=== PATIENT | male | born 1980 | race African-American/Black ===

== ENCOUNTER 2023-12-15 00:48 | Day surgery (SDC) | payer OTHER, SELFPAY ==
[2023-12-01 14:34] VITALS: BMI 31.4
[2023-12-15 12:19] VITALS: BP 122/77; PULSE 87; RESP 18; TEMP 36.1; O2SAT 100
[2023-12-15] MEDS: LACTATED RINGERS 1,000 ML 150 ML IV CONT (12:31)
[2023-12-15 12:33] LABS: Glucose Point of Care 213 mg/dl (65-105)
--- NOTE | 2023-12-15 12:47 | PM.HPGS ---
History of Present Illness History of Present Illness Consent: Risks, benefits, and alternatives have been discussed and questions answered. Patient agrees to proceed with procedure. Chief complaint: other specified diseases of anus and rectum Narrative: Frederick Gibson is a 43 year old male with intermittent rectal pain, never had colonoscopy Review of Systems Review of Systems: All systems reviewed & are unremarkable except as noted in HPI and below PMFSH Past Medical History Medical History (Updated 11/04/23 @ 15:47 by STAN Denis) Rectal pain Social History Social History (Updated 11/04/23 @ 15:48 by Maria Fernanda Hernandez MA) Smoking packs per day: 0.5 Smoking cigarettes per day: 10.0 Years smoked: 25 Smoking pack-years: 12.50 Smoking status: Current every day smoker Tobacco type: cigarettes Alcohol intake: current Drinks per week: 20 Alcohol use details: VODKA Substance use: current Substance use type: marijuana Other substance usage details: SMOKES DAILY Living arrangements: with family Occupation/Education: occupation Gender identity (if verbalized by the patient): Male Spiritual care concerns: No Meds Home Medications and Allergies Home Medications Medication Instructions Recorded Confirmed Type amlodipine 10 mg tablet 10 mg PO DAILY 11/04/23 12/01/23 History dapagliflozin propanediol 10 mg 10 mg PO DAILY 11/04/23 12/01/23 History tablet (Farxiga) fenofibrate nanocrystallized 160 160 mg PO DAILY 11/04/23 12/01/23 History mg tablet hydralazine 25 mg tablet 25 mg PO TID 11/04/23 12/01/23 History hydrocortisone 2.5 % topical cream 1 applic RECTAL BID PRN pain #30 11/04/23 12/01/23 Rx with perineal applicator grams lisinopril 40 mg tablet 40 mg PO DAILY 11/04/23 12/01/23 History meclizine 12.5 mg tablet 12.5 mg PO TID PRN Stomach Upset 11/04/23 12/01/23 History metformin 750 mg tablet,extended 750 mg PO DAILY 11/04/23 12/01/23 History release 24 hr ondansetron HCl 4 mg tablet 4 mg PO Q8H PRN Nausea And Vomiting 11/04/23 12/01/23 History Allergies Allergy/AdvReac Type Severity Reaction Status Date / Time No Known Allergies Allergy Verified 12/15/23 12:17 Vital Signs Vital Signs - 24 hr 12/15/23 12:19 Temperature 97 F L Pulse Rate 87 Respiratory Rate 18 Blood Pressure 122/77 Pulse Oximetry 100 Oxygen Delivery Room Air Exam Const: General: comfortable and no acute distress HENMT: Face/Nose/Sinus: Normal nares present Eyes: General: appearance normal, both eyes and all related structures Neck: Neck: no JVD Resp: Auscultation: clear to auscultation bilaterally Cardio: Rate: regular rate Rhythm: regular rhythm GI: Inspection: non-distended GI Palp: Yes Soft to palpation Skin: General skin exam: normal color Neuro: General: gait normal Speech: normal speech Extrem: General: normal to inspection Psych: Mental Status: mental status grossly normal Assessment and Plan Assessment and plan (1) Rectal pain: Code(s): K62.89 - Other specified diseases of anus and rectum Status: Acute Assessment and Plan: colonoscopy
[2023-12-15 13:17] VITALS: BP 96/69; PULSE 79; RESP 18; O2SAT 93
[2023-12-15 13:27] VITALS: BP 115/96; PULSE 78; RESP 18; O2SAT 100
[2023-12-15 13:37] VITALS: BP 108/67; PULSE 80; RESP 18; O2SAT 100
--- NOTE | 2023-12-18 08:05 | P.PNAN_ITS ---
Anes - Initial Pre Proc Eval Procedure: Operation Date: 12/15/23 13:30 Proposed Procedures p Colonoscopy - Lino Barnhart MD Date/Time: 12/18/23 08:05 Surgeon: Lino Barnhart MD Pre Op Diagnosis: other specified diseases of anus and rectum Patient Data Age: 43 Gender: M Height: 1.8 m Weight: 100.7 kg Last Vital Signs Temp 97 F L 12/15/23 12:19 Pulse 80 12/15/23 13:37 Resp 18 12/15/23 13:37 BP 108/67 12/15/23 13:37 Pulse Ox 100 12/15/23 13:37 O2 Del Method Room Air 12/15/23 13:37 Allergies Allergy/AdvReac Type Severity Reaction Status Date / Time No Known Allergies Allergy Verified 12/15/23 12:17 Home Medications Medication Instructions Recorded Confirmed Type amlodipine 10 mg tablet 10 mg PO DAILY 11/04/23 12/01/23 History dapagliflozin propanediol 10 mg 10 mg PO DAILY 11/04/23 12/01/23 History tablet (Farxiga) fenofibrate nanocrystallized 160 160 mg PO DAILY 11/04/23 12/01/23 History mg tablet hydralazine 25 mg tablet 25 mg PO TID 11/04/23 12/01/23 History hydrocortisone 2.5 % topical cream 1 applic RECTAL BID PRN pain #30 11/04/23 12/01/23 Rx with perineal applicator grams lisinopril 40 mg tablet 40 mg PO DAILY 11/04/23 12/01/23 History meclizine 12.5 mg tablet 12.5 mg PO TID PRN Stomach Upset 11/04/23 12/01/23 History metformin 750 mg tablet,extended 750 mg PO DAILY 11/04/23 12/01/23 History release 24 hr ondansetron HCl 4 mg tablet 4 mg PO Q8H PRN Nausea And Vomiting 11/04/23 12/01/23 History Patient hx anesthesia problems: none Family hx anesthesia problems: none Results Review: All pre-operative results and documents have been reviewed as part of the pre- operative evaluation. [facility] Past Medical History Medical History (Updated 11/04/23 @ 15:47 by STAN Denis) Rectal pain Social History Social History (Updated 11/04/23 @ 15:48 by Maria Fernanda Hernandez MA) Smoking packs per day: 0.5 Smoking cigarettes per day: 10.0 Years smoked: 25 Smoking pack-years: 12.50 Smoking status: Current every day smoker Tobacco type: cigarettes Alcohol intake: current Drinks per week: 20 Alcohol use details: VODKA Substance use: current Substance use type: marijuana Other substance usage details: SMOKES DAILY Living arrangements: with family Occupation/Education: occupation Gender identity (if verbalized by the patient): Male Spiritual care concerns: No Anes - Eval Final PreProcedure Day of Procedure 12/18/23 08:05 Patient weight: obese Heart: regular rate and rhythm Lungs: clear to auscultation Airway: Mallampati scale class II Neurological: alert and oriented Last oral intake: >/= 8 hours ASA classification: III Emergent: no Anesthetic plan: proceed Anesthesia type and monitoring: general GIVS and standard monitoring Results Review: All pre-operative results and documents have been reviewed as part of the pre- operative evaluation. Informed Consent: The patient's anesthetic plan and its attendant risks and benefits were discussed with the patient/family/POA. Questions were solicited and answers provided to the satisfaction of the patient/family/POA.
== END 2023-12-15 13:44 | disposition home or self-care (01) ==
PROVIDERS: PCP Nurse Practitioner Family; Visit Provider Internal Medicine Gastroenterology
PROC: 0DJD8ZZ Inspection of Lower Intestinal Tract, Via Natural or Artificial Opening Endoscopic (ICD-10-PCS; CPT 45378; principal; 2023-12-15 13:30)
DX: D12.3 Benign neoplasm of transverse colon (principal); D12.4 Benign neoplasm of descending colon; D12.5 Benign neoplasm of sigmoid colon; K63.5 Polyp of colon; K64.8 Other hemorrhoids; F17.210 Nicotine dependence, cigarettes, uncomplicated; Z79.84 Long term (current) use of oral hypoglycemic drugs; F12.90 Cannabis use, unspecified, uncomplicated; E66.9 Obesity, unspecified; Z68.31 Body mass index [BMI] 31.0-31.9, adult
CPT/HCPCS: 45385; 82948; 88305; J2704; J7120

== ENCOUNTER 2024-03-18 00:10 | Day surgery (SDC) | payer OTHER, SELFPAY ==
[2024-03-08 14:40] VITALS: BMI 34.2
[2024-03-18 14:13] VITALS: BP 140/76; PULSE 100; RESP 17; TEMP 36; O2SAT 100
--- NOTE | 2024-03-18 14:46 | WPDHPUPDATE1 ---
History and Physical Update Update Date/Time: 03/18/24 14:46 History and Physical has been reviewed, including an updated exam of the patient. There are NO changes in the patient's condition. Risks, benefits, and alternatives have been discussed and questions answered. Patient agrees to proceed with procedure.
--- NOTE | 2024-03-18 14:46 | W.PM.PROC2 ---
Procedure Note - Detailed Date of Procedure 03/18/24 Pre-op Diagnosis Hemorrhoids Post-op Diagnosis Same Procedure Performed irc of internal hemorrhoids Surgeon Lino Barnhart MD Anesthesia None Indications hemorrhoids Description of Procedure noted small size internal hemorrhoids using anoscope, no fissure. Then advanced IRC probe and hemorrhoid treated for 1.5 seconds x6
== END 2024-03-18 14:48 | disposition home or self-care (01) ==
PROVIDERS: PCP Nurse Practitioner Family; Referring Provider Nurse Practitioner; Visit Provider Internal Medicine Gastroenterology
PROC: (CPT 46930; principal; 2024-03-18 14:30)
DX: K64.8 Other hemorrhoids (principal); K62.5 Hemorrhage of anus and rectum; F17.210 Nicotine dependence, cigarettes, uncomplicated; E66.9 Obesity, unspecified; Z68.34 Body mass index [BMI] 34.0-34.9, adult
CPT/HCPCS: 46930

== ENCOUNTER 2024-07-12 00:22 | Day surgery (SDC) | payer OTHER, SELFPAY ==
[2024-06-29 15:45] VITALS: BMI 32.5
[2024-07-12 12:55] VITALS: BP 135/78; PULSE 102; RESP 18; TEMP 36.1; O2SAT 99
--- NOTE | 2024-07-12 13:32 | P.HP_ITS ---
History of Present Illness History of Present Illness Consent: Risks, benefits, and alternatives have been discussed and questions answered. Patient agrees to proceed with procedure. Chief complaint: IRC Narrative: Frederick Gibson is a 44 year old male with internal hemorrhoids, still symptomatic and would like to try another IRC Review of Systems Review of Systems: All systems reviewed & are unremarkable except as noted in HPI and below PMFSH Past Medical History Medical History (Updated 02/25/24 @ 15:11 by Yadira Dee, [employer]) Adenomatous colon polyp Bright red blood per rectum Internal hemorrhoids Rectal pain Social History Social History Smoking packs per day: 0.5 Smoking cigarettes per day: 10.0 Years smoked: 20 Smoking pack-years: 10.00 Smoking status: Current some day smoker Tobacco type: cigarettes Alcohol intake: current Drinks per week: 1 Alcohol use details: VODKA Substance use: never Substance use type: does not use Other substance usage details: SMOKES DAILY Living arrangements: alone Occupation/Education: occupation Gender identity (if verbalized by the patient): Male Spiritual care concerns: No Meds Home Medications and Allergies Home Medications Medication Instructions Recorded Confirmed Type amlodipine 10 mg tablet 10 mg PO DAILY 11/04/23 07/12/24 History dapagliflozin propanediol 10 mg 10 mg PO DAILY 11/04/23 07/12/24 History tablet (Farxiga) fenofibrate nanocrystallized 160 160 mg PO DAILY 11/04/23 07/12/24 History mg tablet hydralazine 25 mg tablet 25 mg PO TID 11/04/23 07/12/24 History hydrocortisone 2.5 % topical cream 1 applic RECTAL BID PRN pain #30 11/04/23 07/12/24 Rx with perineal applicator grams lisinopril 40 mg tablet 40 mg PO DAILY 11/04/23 07/12/24 History meclizine 12.5 mg tablet 12.5 mg PO TID PRN Stomach Upset 11/04/23 07/12/24 History metformin 750 mg tablet,extended 750 mg PO DAILY 11/04/23 07/12/24 History release 24 hr ondansetron HCl 4 mg tablet 4 mg PO Q8H PRN Nausea And Vomiting 11/04/23 07/12/24 History hydrocortisone acetate 25 mg 25 mg RECTAL BID #12 ea 02/25/24 07/12/24 Rx rectal suppository (Anusol-HC) Allergies Allergy/AdvReac Type Severity Reaction Status Date / Time No Known Allergies Allergy Verified 07/12/24 12:53 Vital Signs Vital Signs - 24 hr 07/12/24 12:55 Temperature 97 F L Pulse Rate 102 H Respiratory Rate 18 Blood Pressure 135/78 Pulse Oximetry 99 Oxygen Delivery Room Air Exam Const: General: comfortable and no acute distress HENMT: Face/Nose/Sinus: Normal nares present Eyes: General: appearance normal, both eyes and all related structures Neck: Neck: no JVD Resp: Auscultation: clear to auscultation bilaterally Cardio: Rate: regular rate Rhythm: regular rhythm GI: Inspection: non-distended GI Palp: Yes Soft to palpation Skin: General skin exam: normal color Neuro: General: gait normal Speech: normal speech Extrem: General: normal to inspection Psych: Mental Status: mental status grossly normal Assessment and Plan Assessment and plan (1) Internal hemorrhoids: Code(s): K64.8 - Other hemorrhoids Status: Acute Assessment and Plan: irc
--- NOTE | 2024-07-12 13:33 | W.PM.PROC2 ---
Procedure Note - Detailed Date of Procedure 07/12/24 Pre-op Diagnosis IRC Post-op Diagnosis Same Procedure Performed irc of internal hemorrhoids Surgeon Lino Barnhart MD Anesthesia None Findings noted small size internal hemorrhoids using anoscope, no fissure. Then advanced IRC probe and hemorrhoid treated for 1.5 seconds x6, this procedure was uncomfortable for him. If this does not work then I would not repeat it again and consider to see surgeon for evaluation. Use topical medication for now. Description of Procedure see above
== END 2024-07-12 13:35 | disposition home or self-care (01) ==
PROVIDERS: PCP Nurse Practitioner Family; Visit Provider Internal Medicine Gastroenterology
PROC: (CPT 46930; principal; 2024-07-12 13:00)
DX: K64.8 Other hemorrhoids (principal); F17.210 Nicotine dependence, cigarettes, uncomplicated; Z79.84 Long term (current) use of oral hypoglycemic drugs
CPT/HCPCS: 46930